=== PATIENT | female | born 1960 | race Caucasian/White ===

== ENCOUNTER 2021-05-23 06:11 | Inpatient (IN) ==
[2021-05-23] MEDS ORDERED: CeFAZolin Syr 2,000MG/20 ML 2,000 MG/20 ML SYRINGE IVPB ONE (06:49)
[2021-05-23] MEDS ORDERED: Ringers Solution, Lactated 1,000 ML IVC SCH (07:00)
[2021-05-23] MEDS ORDERED: Acetaminophen IV 1,000 MG/100 ML BAG IVPB ONE (07:06)
[2021-05-23] MEDS ORDERED: Bupivacaine-MPF 0.25% 10 ML VIAL ONE (07:08)
[2021-05-23] MEDS ORDERED: Lidocaine/EPI 1:100k 1% 50 ML VIAL ONE (07:08)
[2021-05-23] MEDS ORDERED: *HR* OxyCODONE ER (12 HR) 10 MG TABLET PO ONE (07:16)
[2021-05-23] MEDS ORDERED: *HR* Propofol 200 MG/20 ML VIAL IVP ONE (07:19)
[2021-05-23] MEDS ORDERED: Lidocaine -MPF 4% 5 ML AMPUL ONE (07:19)
[2021-05-23] MEDS ORDERED: *HR* Rocuronium Bromide 50 MG/5 ML VIAL ONE ×3 (07:19→10:27)
[2021-05-23] MEDS ORDERED: Lidocaine -MPF 2% 2 ML VIAL ONE (07:19)
[2021-05-23] MEDS ORDERED: Ondansetron 4 MG/2 ML VIAL ONE (07:19)
[2021-05-23] MEDS ORDERED: *HR* FentaNYL (PF) 100 MCG/2 ML VIAL ONE (07:19)
[2021-05-23] MEDS ORDERED: MetroNIDAZOLE 500 MG/100 ML 500 MG/100 ML BAG IVPB ONE (07:37)
[2021-05-23] MEDS ORDERED: Dexmedetomidine HCl 400 MCG/100 ML MLS IVC ONE (07:41)
[2021-05-23] MEDS ORDERED: *HR* Meperidine 25 MG/ML SYRINGE IVP PRN (07:41)
[2021-05-23] MEDS ORDERED: Ondansetron 4 MG/2 ML VIAL IVP PRN ×2 (07:41→14:18)
[2021-05-23] MEDS ORDERED: Albuterol 2.5 MG/3 ML NEBULIZER IH PRN (07:41)
[2021-05-23] MEDS ORDERED: *HR* Midazolam HCl 2 MG/2 ML VIAL ONE (07:51)
[2021-05-23] MEDS ORDERED: EPHEDrine 50 MG/ML VIAL ONE (08:03)
[2021-05-23] MEDS ORDERED: Ketorolac 30 MG/ML VIAL ONE (11:46)
[2021-05-23] MEDS ORDERED: Sugammadex Sodium 200 MG/2 ML VIAL IV ONE (11:47)
[2021-05-23] MEDS: *HR* HYDROmorphone PF 0.5 MG/0.5 ML SYRINGE IVP PRN ×4 (13:05→13:20)
[2021-05-23] MEDS: *HR* HYDROmorphone 2 MG/ML SYRINGE IVP PRN ×2 (13:43→13:48)
[2021-05-23] MEDS ORDERED: Naloxone 0.4 MG/ML INJ IVP PRN (14:18)
[2021-05-23] MEDS ORDERED: Fluticasone Propionate Nasal 50 MCG/SPRAY BOTTLE NS PRN (14:18)
[2021-05-23] MEDS: Ringers Solution, Lactated 1,000 ML IVC SCH ×2 (14:25→19:14)
[2021-05-23] MEDS: *HR* HYDROcodone/Acet 5/325 mg TABLET PO PRN (14:32)
[2021-05-23] MEDS: Gabapentin 400 MG CAPSULE PO SCH ×2 (15:23→21:34)
[2021-05-23] MEDS: tiZANidine 4 MG TABLET PO SCH ×2 (15:23→21:35)
[2021-05-23] MEDS ORDERED: *HR* HYDROmorphone 20 MG/20 ML PCA IVC PRN (16:00)
[2021-05-23] MEDS ORDERED: *HR* Dextrose 50 % in Water (Vial) 50 ML VIAL IVP PRN (16:26)
[2021-05-23] MEDS ORDERED: Dextrose Gel 15 GM/37.5 ML TUBE PO PRN ×2 (16:26)
[2021-05-23] MEDS ORDERED: D5% in Water 1,000 ML IVC PRN (16:26)
[2021-05-23 18:58] LABS: Hematocrit 31.3 % (35.3-44.9); Hemoglobin 10.6 g/dL (11.5-15.4)
[2021-05-23] MEDS ORDERED: Morphine Sulfate ER (12 HR) 30 MG TABLET.ER PO SCH (21:00)
[2021-05-23] MEDS: *HR* Metformin 500 MG TABLET PO SCH (21:34)
[2021-05-23] MEDS: traZODone 50 MG TABLET PO SCH (21:34)
[2021-05-23] MEDS: Ketorolac 15 MG/ML VIAL IVP PRN (21:35)
[2021-05-23] MEDS: Insulin LISPRO 300 UNITS/3 ML VIAL SUBQ SCH (21:36)
[2021-05-24 04:51] LABS: Basophils % 0.3 %; Eosinophils % 0.2 %; Hemoglobin 9.8 g/dL (11.5-15.4); Immature Granulocytes % 0.3 % (0-4); Lymphocytes # 1.3 K/mcL (0.6-4.6); Mean Corpuscular HGB Conc 33.8 g/dL (31.6-35.5); Mean Corpuscular Hemoglobin 29.4 pg (28.0-33.3); Mean Corpuscular Volume 87.1 fL (83.0-100.0); Mean Platelet Volume 10.9 fL (9.4-12.4); Monocytes # 0.5 K/mcL (0.0-1.3); Monocytes % 7.7 %; Neutrophils # 4.8 K/mcL (1.6-8.9); Platelet Count 154 K/mcL (140-400); Red Blood Count 3.33 M/mcL (3.82-4.97); Segmented Neutrophils % 71.5 %; White Blood Count 6.7 K/mcL (4.3-11.1)
[2021-05-24] MEDS: Insulin LISPRO 300 UNITS/3 ML VIAL SUBQ SCH ×4 (05:36→18:25)
[2021-05-24] MEDS: Ketorolac 15 MG/ML VIAL IVP PRN ×3 (05:39→21:11)
[2021-05-24] MEDS: Ringers Solution, Lactated 1,000 ML IVC SCH ×2 (06:08→14:10)
[2021-05-24] MEDS ORDERED: cloNIDine HCL 0.1 MG TABLET PO SCH (09:00)
[2021-05-24] MEDS ORDERED: amLODIPine 5 MG TABLET PO SCH (09:00)
[2021-05-24] MEDS: tiZANidine 4 MG TABLET PO SCH ×4 (09:45→21:10)
[2021-05-24] MEDS: Gabapentin 400 MG CAPSULE PO SCH ×3 (09:51→21:11)
[2021-05-24] MEDS: *HR* Metformin 500 MG TABLET PO SCH ×2 (09:51→21:10)
[2021-05-24] MEDS: Morphine Sulfate ER (12 HR) 30 MG TABLET.ER PO SCH ×2 (09:52→22:18)
[2021-05-24] MEDS: *HR* HYDROcodone/Acet 5/325 mg TABLET PO PRN (12:29)
[2021-05-24] MEDS: Ezetimibe [Zetia] 10 MG Tablet PO SCH (14:21)
[2021-05-24] MEDS: *HR* OxyCODONE/APAP 5/325 TABLET PO PRN (18:28)
[2021-05-24] MEDS: traZODone 50 MG TABLET PO SCH (21:11)
[2021-05-25 00:50] VITALS: O2SAT 93
[2021-05-25] MEDS: Insulin LISPRO 300 UNITS/3 ML VIAL SUBQ SCH ×2 (00:55→07:28)
[2021-05-25] MEDS: Ketorolac 15 MG/ML VIAL IVP PRN (03:17)
[2021-05-25] MEDS: *HR* OxyCODONE/APAP 5/325 TABLET PO PRN (03:17)
[2021-05-25 07:51] VITALS: BP 93/63; PULSE 87; TEMP 98.9
[2021-05-25] MEDS: *HR* Metformin 500 MG TABLET PO SCH (07:53)
[2021-05-25] MEDS: tiZANidine 4 MG TABLET PO SCH (07:53)
[2021-05-25] MEDS: Gabapentin 400 MG CAPSULE PO SCH (07:53)
[2021-05-25] MEDS: Ezetimibe [Zetia] 10 MG Tablet PO SCH (07:53)
[2021-05-25] MEDS: Morphine Sulfate ER (12 HR) 30 MG TABLET.ER PO SCH (08:36)
== END 2021-05-25 08:39 | disposition home or self-care (01) | DRG 743 ==
LOC: SAMDAY 06:11 → 1NENUPED 14:15 → 1NENUOBS 05-24 10:07 → SAMDAY 05-25 08:39 → 1NENUOBS 05-30 14:51
PROVIDERS: ADMIT Obstetrics & Gynecology; ATTEND Obstetrics & Gynecology

== ENCOUNTER 2021-06-08 20:52 | Inpatient (IN) ==
[2021-06-08] MEDS ORDERED: Isovue-370 500 ML BOTTLE IVP ONE (22:59)
[2021-06-08] MEDS ORDERED: Cefepime HCl 1,000 MG in Water for inj. (sterile) 10 ML IVP ONE (23:00)
[2021-06-08] MEDS ORDERED: Vancomycin 1,250 MG/262.5 ML IV.SOLN IVPB ONE (23:00)
[2021-06-08 23:27] LABS: Basophils # 0.1 K/mcL (0.0-0.2); Basophils % 0.9 %; Eosinophils # 0.2 K/mcL (0.0-0.6); Eosinophils % 2.3 %; Hematocrit 33.3 % (35.3-44.9); Hemoglobin 11.3 g/dL (11.5-15.4); Immature Granulocytes % 0.2 % (0-4); Lymphocytes # 1.9 K/mcL (0.6-4.6); Mean Corpuscular HGB Conc 33.9 g/dL (31.6-35.5); Mean Corpuscular Hemoglobin 29.4 pg (28.0-33.3); Mean Corpuscular Volume 86.7 fL (83.0-100.0); Monocytes # 0.6 K/mcL (0.0-1.3); Monocytes % 6.4 %; Neutrophils # 6.6 K/mcL (1.6-8.9); Platelet Count 364 K/mcL (140-400); Red Blood Count 3.84 M/mcL (3.82-4.97); Red Cell Distribution Width 13.8 % (11.5-14.5); Segmented Neutrophils % 70.2 %; White Blood Count 9.4 K/mcL (4.3-11.1)
[2021-06-08 23:31] LABS: Prothrombin Time 11.6 Seconds (9.4-12.1)
[2021-06-08 23:32] LABS: BUN/Creatinine Ratio 10 (6-26); Blood Urea Nitrogen 9 mg/dL (8-23); Calcium 9.4 mg/dL (8.6-10.3); Carbon Dioxide 28 mEq/L (23-29); Chloride 100 mEq/L (98-107); Glucose 116 mg/dL (70-105); Osmolality,Calculated 282 (280-300); Potassium 3.9 mEq/L (3.5-5.1); Sodium 136 mEq/L (136-145); eGFR For African Americans > 60 (> 60); eGFR For Non-African Americans > 60 (> 60)
[2021-06-08 23:33] LABS: Activated Partial Thrombo Time 35.5 Seconds (26.0-36.0)
[2021-06-08 23:47] LABS: Bacteria,Urine Few per hpf (None-Few); Bilirubin,Urine Negative (Negative); Blood,Urine Negative (Negative); Clarity,Urine Clear (Clear); Color,Urine Light-Yellow (Yellow); Glucose,Urine (UA) Normal (Normal); Ketones,Urine Negative (Negative); Leukocyte Esterase,Urine Large (Negative); Mucus,Urine Few per lpf (None-Few); Nitrite,Urine Negative (Negative); PH,Urine 6.5 pH Units (5.0-8.0); Protein,Urine Negative (Neg-Trace); RBC,Urine 0-3 per hpf (0-3); Specific Gravity,Urine 1.012 (1.010-1.025); Squamous Epithelial Cell,Urine Few per hpf (None-Few); Urobilinogen,Urine Normal (Normal); WBC,Urine 15-30 per hpf (0-3)
[2021-06-09] MEDS ORDERED: *HR* HYDROcodone/Acet 5/325 mg TABLET PO ONE (01:12)
[2021-06-09] MEDS: Ibuprofen 400 MG TABLET PO PRN ×3 (05:05→19:32)
[2021-06-09] MEDS: Morphine Sulfate ER (12 HR) 30 MG TABLET.ER PO SCH ×2 (08:00→19:32)
[2021-06-09] MEDS: Gabapentin 400 MG CAPSULE PO SCH ×3 (08:00→19:32)
[2021-06-09] MEDS: tiZANidine 4 MG TABLET PO SCH ×4 (08:01→19:32)
[2021-06-09] MEDS: cloNIDine HCL 0.1 MG TABLET PO SCH (08:01)
[2021-06-09] MEDS: lisinopriL 20 MG TABLET PO SCH (08:01)
[2021-06-09] MEDS: amLODIPine 5 MG TABLET PO SCH (08:02)
[2021-06-09] MEDS: *HR* Metformin 500 MG TABLET PO SCH ×2 (08:02→16:20)
[2021-06-09] MEDS: Vancomycin 1,250 MG/262.5 ML IV.SOLN IVPB SCH (11:58)
[2021-06-09] MEDS ORDERED: Vancomycin 1,250 MG/262.5 ML IV.SOLN IVPB SCH (12:00)
[2021-06-09] MEDS: traZODone 50 MG TABLET PO SCH (19:32)
[2021-06-10] MEDS: Vancomycin 1,250 MG/262.5 ML IV.SOLN IVPB SCH ×2 (00:03→17:39)
[2021-06-10] MEDS: Ibuprofen 400 MG TABLET PO PRN ×3 (03:54→20:08)
[2021-06-10] MEDS ORDERED: *HR* Dextrose 50 % in Water (Syg) 50 ML SYRINGE IVP PRN ×2 (08:33→08:36)
[2021-06-10] MEDS ORDERED: Dextrose Gel 15 GM/37.5 ML TUBE PO PRN ×4 (08:33→08:36)
[2021-06-10] MEDS ORDERED: D5% in Water 1,000 ML IVC PRN ×2 (08:33→08:36)
[2021-06-10] MEDS: *HR* Metformin 500 MG TABLET PO SCH ×2 (10:02→17:03)
[2021-06-10] MEDS: cloNIDine HCL 0.1 MG TABLET PO SCH (10:02)
[2021-06-10] MEDS: amLODIPine 5 MG TABLET PO SCH (10:05)
[2021-06-10] MEDS: Gabapentin 400 MG CAPSULE PO SCH ×3 (10:05→20:08)
[2021-06-10] MEDS: tiZANidine 4 MG TABLET PO SCH ×3 (10:05→20:08)
[2021-06-10] MEDS: lisinopriL 20 MG TABLET PO SCH (10:05)
[2021-06-10] MEDS: Morphine Sulfate ER (12 HR) 30 MG TABLET.ER PO SCH ×2 (10:08→20:10)
[2021-06-10] MEDS: Insulin LISPRO 300 UNITS/3 ML VIAL SUBQ SCH ×2 (11:55→17:07)
[2021-06-10 16:25] LABS: BUN/Creatinine Ratio 13 (6-26); Blood Urea Nitrogen 10 mg/dL (8-23); eGFR For African Americans > 60 (> 60); eGFR For Non-African Americans > 60 (> 60)
[2021-06-10 17:03] LABS: Vancomycin,Trough 9 mcg/mL (5-10)
[2021-06-10] MEDS: traZODone 50 MG TABLET PO SCH (20:09)
[2021-06-10] MEDS ORDERED: Insulin LISPRO 300 UNITS/3 ML VIAL SUBQ SCH (21:00)
[2021-06-11] MEDS: Ibuprofen 400 MG TABLET PO PRN ×3 (03:43→17:29)
[2021-06-11 05:34] LABS: Mean Corpuscular Hemoglobin 28.4 pg (28.0-33.3); Red Cell Distribution Width 14.3 % (11.5-14.5)
[2021-06-11 05:36] LABS: Basophils # 0.1 K/mcL (0.0-0.2); Eosinophils # 0.2 K/mcL (0.0-0.6); Eosinophils % 3.1 %; Hematocrit 32.5 % (35.3-44.9); Hemoglobin 10.4 g/dL (11.5-15.4); Immature Granulocytes % 0.3 % (0-4); Immature Platelets 8.5 % (1.1-6.1); Lymphocytes # 2.1 K/mcL (0.6-4.6); Lymphocytes % 30.5 %; Mean Corpuscular Volume 88.8 fL (83.0-100.0); Mean Platelet Volume 11.2 fL (9.4-12.4); Monocytes # 0.5 K/mcL (0.0-1.3); Monocytes % 6.7 %; Platelet Count 285 K/mcL (140-400); Red Blood Count 3.66 M/mcL (3.82-4.97); Segmented Neutrophils % 58.4 %; White Blood Count 6.8 K/mcL (4.3-11.1)
[2021-06-11] MEDS: Vancomycin 1,250 MG/262.5 ML IV.SOLN IVPB SCH ×2 (05:40→17:29)
[2021-06-11] MEDS: Gabapentin 400 MG CAPSULE PO SCH ×3 (08:57→21:04)
[2021-06-11] MEDS: *HR* Metformin 500 MG TABLET PO SCH ×2 (08:57→17:29)
[2021-06-11] MEDS: tiZANidine 4 MG TABLET PO SCH ×4 (08:57→21:04)
[2021-06-11] MEDS: lisinopriL 20 MG TABLET PO SCH (08:57)
[2021-06-11] MEDS: cloNIDine HCL 0.1 MG TABLET PO SCH (08:58)
[2021-06-11] MEDS: amLODIPine 5 MG TABLET PO SCH (08:58)
[2021-06-11] MEDS: Morphine Sulfate ER (12 HR) 30 MG TABLET.ER PO SCH ×2 (08:59→21:04)
[2021-06-11] MEDS: EZETIMIBE 10 MG PO SCH (09:08)
[2021-06-11] MEDS: DICLOFENAC SODIUM 100 GM TP SCH ×2 (09:08→11:41)
[2021-06-11] MEDS: Piperacillin/Tazobactam 3.375 GM in 0.9 % Sodium Chloride Mini Bag 100 ML IVPB SCH ×2 (11:34→20:15)
[2021-06-11] MEDS ORDERED: Piperacillin/Tazobactam 3.375 GM in 0.9 % Sodium Chloride Mini Bag 100 ML IVPB SCH (16:00)
[2021-06-11] MEDS: traZODone 50 MG TABLET PO SCH (21:04)
[2021-06-12] MEDS: Ibuprofen 400 MG TABLET PO PRN ×3 (00:55→22:23)
[2021-06-12] MEDS: Piperacillin/Tazobactam 3.375 GM in 0.9 % Sodium Chloride Mini Bag 100 ML IVPB SCH ×3 (04:32→19:10)
[2021-06-12 05:03] LABS: BUN/Creatinine Ratio 15 (6-26); Blood Urea Nitrogen 10 mg/dL (8-23); Vancomycin,Trough 14 mcg/mL (5-10); eGFR For African Americans > 60 (> 60); eGFR For Non-African Americans > 60 (> 60)
[2021-06-12] MEDS: Vancomycin 1,250 MG/262.5 ML IV.SOLN IVPB SCH ×2 (06:31→20:54)
[2021-06-12] MEDS: Morphine Sulfate ER (12 HR) 30 MG TABLET.ER PO SCH ×2 (09:03→20:57)
[2021-06-12] MEDS: *HR* Metformin 500 MG TABLET PO SCH ×2 (09:04→18:16)
[2021-06-12] MEDS: tiZANidine 4 MG TABLET PO SCH ×4 (09:04→20:57)
[2021-06-12] MEDS: Gabapentin 400 MG CAPSULE PO SCH ×3 (09:04→20:57)
[2021-06-12] MEDS: cloNIDine HCL 0.1 MG TABLET PO SCH (12:23)
[2021-06-12] MEDS: EZETIMIBE 10 MG PO SCH (15:36)
[2021-06-12] MEDS ORDERED: Isovue-370 500 ML BOTTLE IVP ONE (17:23)
[2021-06-12] MEDS ORDERED: Acetaminophen IV 1,000 MG/100 ML BAG IVPB ONE (17:57)
[2021-06-12] MEDS: traZODone 50 MG TABLET PO SCH (20:57)
[2021-06-13] MEDS: Piperacillin/Tazobactam 3.375 GM in 0.9 % Sodium Chloride Mini Bag 100 ML IVPB SCH ×3 (05:17→20:24)
[2021-06-13] MEDS: Vancomycin 1,250 MG/262.5 ML IV.SOLN IVPB SCH ×2 (05:17→17:13)
[2021-06-13] MEDS: DICLOFENAC SODIUM 100 GM TP SCH ×6 (05:30→20:28)
[2021-06-13] MEDS: tiZANidine 4 MG TABLET PO SCH ×5 (05:44→20:24)
[2021-06-13] MEDS: Ibuprofen 400 MG TABLET PO PRN ×2 (06:41→15:13)
[2021-06-13] MEDS: *HR* Metformin 500 MG TABLET PO SCH ×2 (08:28→17:12)
[2021-06-13] MEDS: Gabapentin 400 MG CAPSULE PO SCH ×3 (08:28→20:24)
[2021-06-13] MEDS: Morphine Sulfate ER (12 HR) 30 MG TABLET.ER PO SCH ×2 (08:29→20:24)
[2021-06-13] MEDS: EZETIMIBE 10 MG PO SCH (08:31)
[2021-06-13] MEDS: traZODone 50 MG TABLET PO SCH (20:24)
[2021-06-14] MEDS: Ibuprofen 400 MG TABLET PO PRN ×3 (00:15→21:00)
[2021-06-14] MEDS: Piperacillin/Tazobactam 3.375 GM in 0.9 % Sodium Chloride Mini Bag 100 ML IVPB SCH ×3 (04:33→20:59)
[2021-06-14] MEDS: Vancomycin 1,250 MG/262.5 ML IV.SOLN IVPB SCH ×2 (04:34→18:26)
[2021-06-14] MEDS: tiZANidine 4 MG TABLET PO SCH ×4 (08:14→21:00)
[2021-06-14] MEDS: DICLOFENAC SODIUM 100 GM TP SCH ×4 (08:14→21:01)
[2021-06-14] MEDS: Morphine Sulfate ER (12 HR) 30 MG TABLET.ER PO SCH ×2 (08:14→21:00)
[2021-06-14] MEDS: Gabapentin 400 MG CAPSULE PO SCH ×3 (08:14→21:00)
[2021-06-14] MEDS: *HR* Metformin 500 MG TABLET PO SCH ×2 (08:14→17:10)
[2021-06-14] MEDS: EZETIMIBE 10 MG PO SCH (08:15)
[2021-06-14] MEDS: traZODone 50 MG TABLET PO SCH (21:00)
[2021-06-15] MEDS: Piperacillin/Tazobactam 3.375 GM in 0.9 % Sodium Chloride Mini Bag 100 ML IVPB SCH (05:02)
[2021-06-15] MEDS: Ibuprofen 400 MG TABLET PO PRN (05:02)
[2021-06-15] MEDS: Vancomycin 1,250 MG/262.5 ML IV.SOLN IVPB SCH (05:02)
[2021-06-15 06:08] LABS: eGFR For African Americans > 60 (> 60); eGFR For Non-African Americans > 60 (> 60)
[2021-06-15 08:06] VITALS: BP 119/83; PULSE 67; TEMP 97.8; O2SAT 96
[2021-06-15] MEDS: tiZANidine 4 MG TABLET PO SCH (08:21)
[2021-06-15] MEDS: Gabapentin 400 MG CAPSULE PO SCH (08:21)
[2021-06-15] MEDS: Morphine Sulfate ER (12 HR) 30 MG TABLET.ER PO SCH (08:21)
[2021-06-15] MEDS: *HR* Metformin 500 MG TABLET PO SCH (08:22)
[2021-06-15] MEDS: EZETIMIBE 10 MG PO SCH (08:23)
[2021-06-15] MEDS: DICLOFENAC SODIUM 100 GM TP SCH (08:24)
== END 2021-06-15 11:01 | disposition home or self-care (01) | DRG 857 ==
LOC: 1NENUOBS 20:52 → EMEROOARM 20:52 → 1NENUOBS 06-09 02:17
PROVIDERS: ADMIT Obstetrics & Gynecology; ATTEND Obstetrics & Gynecology